=== PATIENT | female | born 1950 | race Caucasian/White ===

== ENCOUNTER 2016-05-21 23:07 | Emergency (ER) | payer MEDICARE, BC ==
--- NOTE | ~2016-05-21 | ER ---
PATIENT'S NAME: [facility] AGE: 66 Y [address] ROOM: [place], [place] [address] LOCATION: [facility] ADMIT DATE: 05/21/2016 ER/Outpatient Report DISCHARGE DATE: 05/22/2016 FAMILY PHYSICIAN: PHYSICIAN, NO ATTENDING PHYSICIAN: Sonny Jung Admission date and time documented in medical record. I saw the patient at 2315 hours. CHIEF COMPLAINT: Mid-suprapubic pressure pain and low back pain. HISTORY OF PRESENT ILLNESS: The patient is a 66-year-old female, who this past Thursday started to have some low back pressure pain. This would come and go. Today, she started having some low mid-abdominal pressure pain. She presented to the emergency room by private vehicle for evaluation. No lightheadedness, dizziness, syncope, or near syncope. No fall or trauma. No headache, eyes, ears, nose, throat, or neck pain. No recent cough, cold, flus, fever, chills, or sweats. No chest pain or shortness of breath. No nausea, vomiting, or diarrhea. No urinary frequency, urgency, or dysuria. The patient recently had some right knee surgery. Otherwise, other than that, no other joint or muscle swelling, redness or pain. No skin eruptions or rash. No neuro changes, psych issues, or endocrine problems. HOME MEDICATIONS: None. ALLERGIES: NONE. SOCIAL HISTORY: Nonsmoker and nondrinker. SIGNIFICANT PAST MEDICAL HISTORY: Negative. OPERATIONS: Right knee surgery, left heel surgery, and left knee surgery. REVIEW OF SYSTEMS: All systems reviewed by me are negative with the exception of those discussed in the history of present illness. PHYSICAL EXAMINATION: PATIENT'S NAME: [facility]ARD [facility] AGE: 66 Y [address] ROOM: [place], [place] [address] LOCATION: [facility] ADMIT DATE: 05/21/2016 ER/Outpatient Report DISCHARGE DATE: 05/22/2016 FAMILY PHYSICIAN: PHYSICIAN, NO ATTENDING PHYSICIAN: Sonny Jung VITAL SIGNS: Temperature 97.7, tympanic, pulse 55, respirations 16, blood pressure 213/85, O2 saturation on room air is 93%. HEAD: Normocephalic. EYES, EARS, NOSE, THROAT: Clear. NECK: Negative. SPINE: Negative. LUNGS: Clear. No rales, rhonchi, or wheezes. HEART: Regular. Pulses are palpable. ABDOMEN: Soft. Some tenderness in mid-suprapubic area. No palpable masses. No organomegaly. No CVA tenderness. EXTREMITIES: Intact. NEUROVASCULAR: Intact. SKIN: Clear. LABORATORY DATA: CMS was normal except for an elevated glucose 104, low calcium of 8.4, CRP was 1.21. White count was 8200, 59 segs, 29 lymphocytes, 7 monos, 4 eos, 1 baso, hemoglobin is 12.9, hematocrit 39.5, platelet count is 248,000. Sedimentation rate was 44. Urine showed 10 to 20 whites, rare reds, 2 to 5 epithelial cells, negative bacteria with 2+ mucus, 1+ amorphous material. We went ahead and did an ultrasound of the pelvis. Since she is unable to bend her right knee and was unable to get up in the stirrups, we did an abdominal ultrasound of the pelvis. There appeared to be a prominent mass extending posterior from the lower uterine segment and cervix measuring 9.5 x 7.9 x 8 cm. She also had abnormally thickened and heterogeneous endometrium. I did discuss the patient and the patient's ultrasound with Dr. Douglas, the product safety consultant. He thought we should go ahead and do a CT scan of the abdomen and pelvis with contrast. This was done. The CT scan showed findings concerning for cervical or vaginal stenosis with resultant hydrometrocolpos. He saw some heterogeneous fluid in uterine cavity, endocervical canal, dilatation of the cervix, which accounted for the abnormality seen on ultrasound. He thought this presumably was secondary to cervical or vaginal stenosis. CT scan was read by Radiology, see dictated transcribed report. IMPRESSION: Pelvic pressure pain, etiology uncertain. The ultrasound of the pelvis was concerning for a uterine cervical mass. However, the CT scan looked more like there was dilatation of the cervix presumably from some cervical or vaginal stenosis. PLAN: I did discuss my findings and recommendations with the patient. We did give her 1 liter normal saline IV in the emergency room. I did discharge the patient home. Melber as needed for pain. She needs to see Dr. Joel, product safety consultant for consultative exam in 1 to 2 days or next week, in regard to PATIENT'S NAME: [facility]ARD [facility] AGE: 66 Y [address] ROOM: [place] [address] LOCATION: [facility] ADMIT DATE: 05/21/2016 ER/Outpatient Report DISCHARGE DATE: 05/22/2016 FAMILY PHYSICIAN: , ELINA ATTENDING PHYSICIAN: Sonny Jung the pelvic lower abdominal pressure pain and the findings on the ultrasound of the pelvis and CT scan of the pelvis. The patient understands and agrees with treatment plan. We will set up a visit with Dr. Joel, product safety consultant. MD ALEXANDRIA FLORES/vickie /[id number] d: 05/22/16 0829 t: 05/27/16 1821, OUTPATIENT REPORT
[2016-05-21 23:45] LABS: BILIRUBIN URINE NEGATIVE (NEGATIVE); BLOOD URINE NEGATIVE /UL (NEGATIVE); COLOR URINE YELLOW (YELLOW); GLUCOSE URINE NEGATIVE (NEGATIVE); KETONE URINE NEGATIVE (NEGATIVE); LEUKOCYTES URINE 100 /UL (NEGATIVE); NITRITE URINE NEGATIVE (NEGATIVE); PROTEIN URINE 15 mg/dL (NEGATIVE); TURBIDITY URINE 1+ (CLEAR); UROBILINOGEN URINE 1 mg/dL (NORMAL)
[2016-05-21 23:55] LABS: RBC URINE RARE #/HPF (NEGATIVE)
[2016-05-21 23:56] LABS: AMORPHOUS URINE 1+ (NEGATIVE); BACTERIA URINE NEGATIVE (NEGATIVE); MUCUS URINE 2+ (NEGATIVE)
[2016-05-22] LABS: BASOPHIL # 0.1 K/uL (0.0-0.2); BASOPHIL % 0.7 %; EOSINOPHIL # 0.4 K/uL (0.0-0.5); EOSINOPHIL % 4.3 %; HEMATOCRIT 39.5 % (33.0-46.0); HEMOGLOBIN 12.9 g/dL (10.0-15.0); IMMATURE GRANULOCYTE % 0.2 %; LYMPHOCYTE # 2.4 K/uL (0.8-4.0); LYMPHOCYTE % 29.2 %; MCH 30.4 pg (27.0-34.0); MCHC 32.7 gm/dL (32.0-36.5); MCV 92.9 fl (83.0-98.0); MONOCYTE # 0.6 K/uL (0.0-1.0); MONOCYTE % 7.1 %; MPV 9.6 fl (9.4-12.4); NEUTROPHIL # (ANC) 4.8 K/uL (1.8-7.8); NEUTROPHIL % 58.5 %; NRBC % 0 /100WBC (0-0.00); PLATELET COUNT 248 K/uL (150-450); RBC 4.25 M/uL (3.50-5.50); WBC 8.2 K/uL (4.0-11.0)
[2016-05-22 00:17] LABS: ALBUMIN 3.2 gm/dL (3.5-5.0); CALCIUM 8.4 mg/dL (8.5-10.5); CREATININE 1.1 mg/dL (0.5-1.1); TOTAL BILIRUBIN 0.3 mg/dL (0.0-1.5); TOTAL PROTEIN 7.3 g/dL (6.0-8.4)
== END 2016-05-22 02:38 | disposition disaster alternative care site (69) ==
LOC: GMED 23:07
PROVIDERS: Emergency Medicine
DX: R10.2 Pelvic and perineal pain (principal); Z98.890 Other specified postprocedural states
CPT/HCPCS: J7030; Q9967